=== PATIENT | female | born 1955 | race Asian ===

== ENCOUNTER 2018-09-03 12:13 | Emergency (ER) | payer MEDICAID ==
[~2018-09-03] VITALS: Ht 162.6 cm; Wt 87.7 kg
[2018-09-03] MEDS ORDERED: LOSA50TA64 PO (12:18)
[2018-09-03] MEDS ORDERED: ATOR40TA28 PO (12:18)
[2018-09-03] MEDS ORDERED: LIDOCAINE 1% 10 ML VIAL INJ ONE (12:45)
[2018-09-03] MEDS ORDERED: POVIDONE-IODINE 10% 15 ML SOLUTION UD TP ONE (12:45)
[2018-09-03] MEDS ORDERED: CEPHALEXIN MONOHYDRATE 500 MG CAPSULE PO ONE (12:45)
[2018-09-03 13:48] VITALS: BP 122/76
== END 2018-09-03 14:20 | disposition home or self-care (01) ==
LOC: EMS 12:13
DX: L03.012 Cellulitis of left finger (principal); I10 Essential (primary) hypertension; E78.00 Pure hypercholesterolemia, unspecified
CPT/HCPCS: 10060; 73140; 99283; J3490